=== PATIENT | female | born 1960 | race Caucasian/White ===

== ENCOUNTER → 2016-11-08 | Outpatient (CLI) | payer OTHER ==
[~2016-11-08] MED LIST: TRAZ100T29 PO
--- NOTE | 2016-11-08 16:42 | MAMMOGRAPHY REPORT ---
BILATERAL DIGITAL SCREENING MAMMOGRAM TOMOSYNTHESIS WITH CAD: 11/08/2016 CLINICAL HISTORY: Routine screening. Patient has no complaints. TECHNIQUE: Breast tomosynthesis in addition to standard 2D mammography was performed. Current study was also evaluated with a Computer Aided Detection (CAD) system. COMPARISON: Comparison is made to exams dated: 09/16/2015 mammogram, 04/22/2013 mammogram - [facility], 06/03/2009, and 04/19/2008. BREAST COMPOSITION: The tissue of both breasts is heterogeneously dense, which may obscure small ma sses. FINDINGS: There is an area of possible architectural distortion seen within the right superior post erior breast seen on the MLO tomosynthesis images, for which spot compression tomosynthesis views, r ight XCCL view, and possible breast ultrasound are recommended for further evaluation. The remainder of both breasts are stable compared to prior exams, without suspicious masses, calcifi cations, or areas of architectural distortion noted. IMPRESSION: ACR BI-RADS CATEGORY 0: INCOMPLETE EVALUATION: NEED ADDITIONAL IMAGING EVALUATION Possible right breast architectural distortion, for which additional imaging evaluation is recommend ed. The patient will be called to schedule an appointment. Approximately 10% of breast cancers are not detected with mammography. A negative mammographic repor t should not delay biopsy if a clinically suggestive mass is present. Renetta Sauceda M.D. ah/:11/08/2016 15:54:31 Lead Generation Representative: Rosangela GUILLERMO)(M), [facility] letter sent: Addl Imaging 0 BI-RADS Code: ACR BI-RADS Category 0: Incomplete Evaluation: Need Additional Imaging Evaluation
== END | disposition home or self-care (01) ==
LOC: C.MAMM 08:46
PROVIDERS: ATTEND Obstetrics & Gynecology
DX: Z12.31 Encounter for screening mammogram for malignant neoplasm of breast (principal)

== ENCOUNTER → 2016-11-12 | Outpatient (CLI) | payer OTHER ==
[2016-11-12 15:29] LABS: THYROID STIMULATING HORMONE 0.575 uIu/ml (0.300-4.500)
[2016-11-13 08:11] LABS: ESTIMATED AVERAGE GLUCOSE 111 mg/dl; HA1C FLAG Normal (Normal)
== END | disposition home or self-care (01) ==
LOC: C.LAB1850 13:34
PROVIDERS: ATTEND Internal Medicine
DX: E03.9 Hypothyroidism, unspecified (principal); R73.01 Impaired fasting glucose

== ENCOUNTER → 2016-11-19 | Outpatient (CLI) | payer OTHER ==
--- NOTE | 2016-11-19 15:13 | MAMMOGRAPHY REPORT ---
UNILATERAL RIGHT DIGITAL DIAGNOSTIC MAMMOGRAM TOMOSYNTHESIS AND TARGETED RIGHT ULTRASOUND: 11/19/2016 CLINICAL HISTORY: Architectural distortion in the far superior posterior right breast, only seen on the MLO view. During diagnostic consultation, the patient reports a history of previous right breast surgery in which yielded benign results. There is a small, 2 cm visible vertical scar in the 9:30 far later al right breast. TECHNIQUE: Breast tomosynthesis in addition to standard 2D mammography was performed. Spot cassi tanya right MLO tomosynthesis, right neck CC L tomosynthesis and repeat right MLO tomosynthesis image s with reconstructed C view were obtained. COMPARISON: Comparison is made to exams dated: 11/08/2016 mammogram, 09/16/2015 mammogram, 04/22/2013 mammogram - [facility], 04/19/2008, and 06/03/2009. BREAST COMPOSITION: The tissue of the right breast is heterogeneously dense, which may obscure smal l masses. FINDINGS: Initially the spot compression MLO and exaggerated lateral CC views of the right breast we re obtained. The architectural distortion persists on the spot compression MLO view in the far post erior, slightly superior breast. This is not clearly identified on the exaggerated lateral CC view. No other suspicious mass, architectural distortion or suspicious microcalcifications are seen. On visual inspection there is a vertical scar from an incision in the 9:30 far lateral right breast. Sonographic evaluation was performed throughout the superior right breast and no suspicious solid or cystic mass was seen. There is a vertically oriented hypoechoic area in the skin of the 9:30 kali ast, 6 cm from the nipple, denoting the area of prior surgery. A radiodense scar marker was placed over the incision and a repeat right MLO tomosynthesis view was performed. The scar marker aligns with the area of architectural distortion, confirming it is posts urgical in nature and benign. IMPRESSION: ACR BI-RADS CATEGORY 2: BENIGN, TARGETED ULTRASOUND ACR BI-RADS CATEGORY 2: BENIGN The architectural distortion in the superior posterior right breast correlates with postsurgical sca rring, from the patient's prior benign breast surgery. There is no mammographic or targeted sonogra phic evidence of malignancy. Return to annual screening mammography schedule is recommended. These results and recommendations were discussed with the patient at the time of the exam. Approximately 10% of breast cancers are not detected with mammography. A negative mammographic repor t should not delay biopsy if a clinically suggestive mass is present. Mai Mathews M.D. ay/:11/19/2016 14:30:58 Dry Lumber Grader: Celeste GUILLERMO)([place]), [facility] letter sent: Normal 1/2 BI-RADS Code: ACR BI-RADS Category 2: Benign Ultrasound BI-RADS: ACR BI-RADS Category 2: Benign
== END | disposition home or self-care (01) ==
LOC: C.MAMM 10:15
PROVIDERS: ATTEND Obstetrics & Gynecology
DX: R93.8 Abnormal findings on diagnostic imaging of other specified body structures (principal)

== ENCOUNTER → 2017-04-22 | Outpatient (CLI) | payer OTHER ==
[2017-04-22 11:10] LABS: HEMATOCRIT 38.2 % (37-47); MEAN CORPUSCULAR HEMOGLOBIN 32.7 pg (25-34); MEAN CORPUSCULAR HGB CONC 33.8 g/dl (32-36); MEAN PLATELET VOLUME 10.4 fL (7.4-10.4); PLATELET COUNT 219 K/uL (130-400); RED BLOOD COUNT 3.94 M/uL (4.2-5.4); WHITE BLOOD COUNT 3.98 K/uL (4.8-10.8)
[2017-04-22 11:35] LABS: ESTIMATED AVERAGE GLUCOSE 117 mg/dl; HA1C FLAG Normal (Normal)
[2017-04-22 11:56] LABS: CHOLESTEROL/HDL RATIO 1.8
== END | disposition home or self-care (01) ==
LOC: C.LABBC 08:36
PROVIDERS: ATTEND Physician Assistant Medical
DX: Z13.6 Encounter for screening for cardiovascular disorders (principal)

== ENCOUNTER → 2018-01-09 | Outpatient (CLI) | payer OTHER | END | disposition home or self-care (01) | LOC: C.PAPS 09:06 | PROVIDERS: ATTEND Obstetrics & Gynecology | DX: Z12.4 Encounter for screening for malignant neoplasm of cervix (principal) ==

== ENCOUNTER → 2018-02-07 | Outpatient (CLI) | payer OTHER ==
[2018-02-07 17:15] LABS: ALBUMIN 3.3 gm/dl (3.4-5.0); ALT/SGPT 25 U/L (12-78); AST/SGOT 24 U/L (15-37); BLOOD UREA NITROGEN 10 mg/dl (7-18); CALCIUM 8.6 mg/dl (8.5-10.1); CARBON DIOXIDE 30 mmol/L (21-32); CHOLESTEROL 168 mg/dl (0-200); CREATININE 0.75 mg/dl (0.60-1.20); GLUCOSE 90 mg/dl (70-99); POTASSIUM 4.2 mmol/L (3.5-5.1); SODIUM 138 mmol/L (136-145)
[2018-02-07 17:23] LABS: ALKALINE PHOSPHATASE 65 U/L (45-117); LDL CHOLESTEROL CALCULATED 53 mg/dl; TOTAL PROTEIN 7.3 gm/dl (6.4-8.2)
[2018-02-08 06:39] LABS: HEMOGLOBIN A1C 5.7 % (4.5-5.6)
== END | disposition home or self-care (01) ==
LOC: C.LAB1850 15:34
PROVIDERS: ATTEND Physician Assistant Medical
DX: E03.9 Hypothyroidism, unspecified (principal); R73.01 Impaired fasting glucose

== ENCOUNTER → 2018-02-07 | Outpatient (CLI) | payer OTHER | END | disposition home or self-care (01) | LOC: C.MAMM 15:06 | PROVIDERS: ATTEND Obstetrics & Gynecology | DX: Z12.31 Encounter for screening mammogram for malignant neoplasm of breast (principal) ==

== ENCOUNTER 2025-07-14 05:03 | Observation (INO) ==
[2025-07-14 05:37] LABS: Hematocrit (blood only) 33.0 % (37.0-47.0); Hemoglobin 11.8 g/dl (12.0-16.0); Immature Granulocytes # (auto) 0.03 K/uL (0.01-0.20); Immature Granulocytes % (auto) 0.3 %; Mean Corpuscular Hemoglobin 31.4 pg (25.0-34.0); Mean Corpuscular Volume 87.8 fL (80.0-100.0); Platelet Count 244 K/uL (130-400); RDW Standard Deviation 35.7 fL (36.4-46.3); Red Blood Count 3.76 M/uL (4.20-5.40); White Blood Count 8.60 K/ul (4.8-10.8)
[2025-07-14 06:03] LABS: Alanine Aminotransferase 14.0 U/L (7-52); Albumin Globulin Ratio 1.0 (0.9-2); Albumin Level 3.5 gm/dl (3.4-5.0); Alkaline Phosphatase 56.0 U/L (34-104); Anion Gap 7.0 (3-11); Bilirubin,Total 0.7 mg/dl (0.2-1.0); Blood Urea Nitrogen 7.0 mg/dl (6-23); Calcium 8.4 mg/dl (8.6-10.3); Carbon Dioxide 25.0 mmol/L (21-32); Chloride 86.0 mmol/L (98-107); Creatinine Clr Calc Pharmacy 100.0 ml/min; Globulin 3.5 gm/dl (2.5-4.0); Glucose 122.0 mg/dl (70-99(Fasting)); Lipase 11.0 U/L (11-82); Potassium 3.4 mmol/L (3.5-5.1); Sodium 118.0 mmol/L (136-145); Total Protein 7.0 gm/dl (6.0-8.3)
[2025-07-14] MEDS: FAMOTIDINE 20MG IV PUSH 20 MG/5 ML SYR IV STA (06:11)
[2025-07-14] MEDS: ACETAMINOPHEN 1,000 MG/100 ML VIAL IV STA (06:12)
[2025-07-14] MEDS: ONDANSETRON INJ 2 MG/ML 2 ML VIAL IV STA (06:12)
[2025-07-14] MEDS: SODIUM CHLORIDE 0.9% 500 ML IV ONE (06:15)
--- NOTE | 2025-07-14 06:24 | Emergency Department Note ---
Impression & Plan Hyponatremia with decreased serum osmolality, Constipation, Acute urinary retention, Status post hysterectomy ED Provider Note NAME: ROBERTO Colin MALENA AGE: 65 SEX: F : 1960 ARRIVES VIA: Walk-In INFORMANT: Patient ED PROVIDER(S): Jimbo Chase MD CHIEF COMPLAINT: Abdominal pain, constipation PLAN: Disposition: Admit MEDICAL DECISION MAKING: The patient is a pleasant 65-year-old woman with a past medical history of von Willebrand's disease, hypothyroidism, hyperlipidemia who presents to Emergency Department via walk-in accompanied by her , [place] concaver, for evaluation of abdominal pain that is been ongoing since her hysterectomy on Saturday. She reports that since her procedure patient has been unable to move her bowels. Patient reports she she has chronic constipation and uses laxatives regularly. She reports mild generalized CHATMAN. She denies fevers, cough, congestion, urinary symptoms. Of note, prior to the patient's hysterectomy the patient was treated with prophylactic dose of intranasal desmopressin. On evaluation the patient is no distress, afebrile blood pressure 150/80s and vital signs otherwise stable. She appears clinically dry. She has lower abdominal fullness but no overt distention. No discrete tenderness to palpation. WBC, within normal limits. There is neutrophilia but no left shift. H/H approximate to prior values. Platelets within normal limits. Chemistry without metabolic acidosis. Sodium is noted to be 118 with normal glucose. Osmolality is low at 249 with urine osmolality similar at 251. Urine sodium is mildly elevated at 16. Otherwise no evidence of urinary infection. LFTs are unremarkable. Lipase wnl. CT of the head was completed out of caution and was negative for acute abnormalities. CT of the abdomen pelvis demonstrates colonic fecal and gaseous distention suggestive of constipation given patient's presentation. Post- operative changes present. Incidental findings also noted including liver hypodensity. Of note, bladder did appear distended per my personal review and following CT postvoid bladder scan was performed and patient demonstrated urinary retention of 500+ cc of urine. Thus, Bledsoe catheter was placed. Suspect urinary retention may be related to the patient's recent surgery/anesthesia or contributing to or caused by patient's constipation. Patient did report subsequent relief following Bledsoe catheter placement. Suspect patient's hyponatremia is likely multifactorial including patient's prophylactic desmopressin prior to procedure though given duration of action and half-life unlikely to be exerting any significant effect at this time. Likely further provoked by poor solute intake following the procedure. Case was discussed with Dr. Bush, [facility] hospitalist, who will evaluate the patient for admission. Further management per admitting team. Triage Nursing notes reviewed and agree them. Prior/external medical records reviewed Vital Signs: reviewed Differential diagnosis: Functional constipation, impaction, obstruction, volvulus, metabolic abnormality, infection, neurologic, as well as other pathologies. ER treatment provided: See below. Diagnostics interpreted by me: Cardiac Monitoring: An order for continuous cardiac monitoring was placed and demonstrated NSR, 69 bpm, no ectopy. Laboratory studies: See below Imaging studies: See below Consultation(s): Case was discussed with Dr. Bush, [facility] hospitalist, who will evaluate the patient for admission. HPI: Per MDM. ROS: See above HPI for pertinent positives & negatives. A total of 10 systems reviewed and were otherwise negative. VITALS:See Below PHYSICAL EXAMINATION: GENERAL: Awake, alert, in no distress HENT: Normocephalic, atraumatic. Oropharynx with dry mucous membranes and otherwise unremarkable. EYES: Normal conjunctiva. Sclera non-icteric. EOMI. No nystamgus. PEARRL. NECK: Supple. No nuchal rigidity. FROM. No JVD. RESPIRATORY: Clear to auscultation. CARDIAC: Regular rate, normal rhythm. Extremities warm and well perfused. Pulses equal. ABDOMEN: Lower abdominal fullness but no overt distention. No discrete tenderness to palpation. MUSCULOSKELETAL: Chest examination reveals no tenderness. The back is symmetrical on inspection without obvious abnormality. There is no CVA tenderness to palpation. No joint edema. LOWER EXTREMITIES: Calves are equal size bilaterally and non-tender. No edema. No discoloration. NEURO: Normal sensorium. No sensory or motor deficits noted. SKIN: No rash or jaundice noted. Jimbo Chase MD Past Med/Surg History Problem List (Updated 07/15/25 @ 09:04 by Jimbo Chase MD) Status post hysterectomy (Acute) Acute urinary retention (Acute) Constipation (Acute) Hyponatremia with decreased serum osmolality (Acute) Hormone imbalance Encounter for health maintenance examination Von Willebrand disease, type I (Acute) Impaired fasting glucose (Acute) Hypothyroidism (Acute) Dyslipidemia (Acute) Depression (Acute) Hyperglobulinemia Encounter for health maintenance examination Medical History Basal cell carcinoma Abnormal mammogram Surgical History S/P rhinoplasty H/O breast biopsy open Family History Grandfather Lung cancer Father Myocardial infarction Mother Diverticulosis Lung cancer Grandmother (Paternal) Lung cancer Sister Lupus Denies family history of Ovarian cancer Prostate cancer Breast cancer Colorectal cancer Social History Smoking Status: Never smoker Second Hand Exposure: No; Do You Dip or Chew Tobacco: No; Hx Alcohol Use: No Hx Substance Use: No Preferred Language: Bulgarian Current Living Situation: Spouse Feels Safe at Home: Yes Diet: regular caffeine: Yes Dental Care, Regularly: Yes Physical Activity Frequency: 5-6 Times per Week Physical Activity Frequency Comment: HIIT Seatbelt Use: always Sunscreen Use: Yes Assistive Devices: Glasses and Hospital Bed Allergies Allergies Allergy/AdvReac Type Severity Reaction Status Date / Time Penicillins Allergy Intermediate Verified 03/19/25 08:38 Sulfa (Sulfonamide Allergy Intermediate Verified 03/19/25 08:38 Antibiotics) sulfamethoxazole Allergy Intermediate Verified 03/19/25 08:38 ANCHOVY Allergy Severe Redness of Uncoded 03/19/25 08:38 Skin Home Meds Home Medications Medication Instructions Recorded Confirmed docusate sodium 100 mg capsule 100 mg PO UD PRN Constipation 05/27/19 07/14/25 cholecalciferol (vitamin D3) 50 4,000 unit PO DAILY 05/01/24 07/14/25 mcg (2,000 unit) capsule levothyroxine 88 mcg tablet 88 mcg PO QAM 07/14/25 07/14/25 ondansetron 4 mg disintegrating 4 mg PO Q6H PRN Nausea 07/14/25 07/14/25 tablet Previous Rx's Medication Instructions Recorded bupropion HCl 150 mg tablet,12 hr 150 mg PO DAILY #90 ea 04/05/25 sustained-release conj estrogen-medroxyprogesterone 1 tab PO QAM #90 tabs 04/05/25 0.625 mg-2.5 mg tablet (Prempro) Results & Data (ED) Vital Signs Vital Signs - 24 hr 07/14/25 09:00 07/14/25 09:22 07/14/25 09:33 Pulse Rate 64 60 69 Pulse Rate [Right Finger] Pulse Rate from SpO2 Sensor 64 68 Pulse Rhythm [Right Finger] Pulse Strength [Right Finger] Respiratory Rate 11 L 17 Respiratory Effort / Characteristics Respiratory Depth Respiratory Pattern Blood Pressure 143/89 H 153/87 H Blood Pressure [Right Arm] Blood Pressure Mean 107 109 Blood Pressure Mean [Right Arm] Pulse Oximetry 96 96 Oxygen Delivery Method 07/14/25 10:00 07/14/25 10:07 Pulse Rate 68 Pulse Rate [Right Finger] 66 Pulse Rate from SpO2 Sensor 68 Pulse Rhythm [Right Finger] Regular Pulse Strength [Right Finger] Normal Respiratory Rate 17 16 Respiratory Effort / Characteristics Non-Labored Respiratory Depth Normal Respiratory Pattern Regular Blood Pressure 148/84 H Blood Pressure [Right Arm] 147/86 H Blood Pressure Mean 115 Blood Pressure Mean [Right Arm] 106 Pulse Oximetry 96 96 Oxygen Delivery Method Room Air Laboratory Data Attestation: I reviewed the patient's lab results. 07/14/25 05:22 07/15/25 07:00 Lab Results 07/14/25 07/14/25 07/14/25 Range/Units 05:18 05:22 07:00 WBC 8.60 (4.8-10.8) K/ul RBC 3.76 L (4.20-5.40) M/uL Hgb 11.8 L (12.0-16.0) g/dl Hct 33.0 L (37.0-47.0) % MCV 87.8 (80.0-100.0) fL MCH 31.4 (25.0-34.0) pg MCHC 35.8 (32.0-36.0) g/dL RDW Std Deviation 35.7 L (36.4-46.3) fL RDW Coeff of Kayce 11.1 L (11.5-14.5) % Plt Count 244 (130-400) K/uL MPV 9.6 (9.4-12.4) fL Immature Gran % (Auto) 0.3 % Neut % (Auto) 79.2 % Lymph % (Auto) 14.0 % [place] % (Auto) 5.9 % Eos % (Auto) 0.1 % Baso % (Auto) 0.5 % Neut # (Auto) 6.81 H (1.40-6.50) K/uL Lymph # (Auto) 1.20 (1.20-3.40) K/uL [place] # (Auto) 0.51 (0.11-0.59) K/uL Eos # (Auto) 0.01 (0.00-0.50) K/uL Baso # (Auto) 0.04 (0.00-0.20) K/uL Immature Gran # (Auto) 0.03 (0.01-0.20) K/uL Sodium 118 L* (136-145) mmol/L Potassium 3.4 L (3.5-5.1) mmol/L Chloride 86 L (98-107) mmol/L Carbon Dioxide 25 (21-32) mmol/L Anion Gap 7 (3-11) BUN 7 (6-23) mg/dl Creatinine 0.56 L (0.6-1.2) mg/dl Est Cr Clr Drug Dosing 100.0 ml/min eGFR 102.49 BUN/Creatinine Ratio 12.5 (10-20) Glucose 122 H (70-99(Fasting)) mg/dl Osmolality 249 L (280-300) mOsm/kg Calcium 8.4 L (8.6-10.3) mg/dl Total Bilirubin 0.7 (0.2-1.0) mg/dl AST 22 (13-39) U/L ALT 14 (7-52) U/L Alkaline Phosphatase 56 (34-104) U/L Total Protein 7.0 (6.0-8.3) gm/dl Albumin 3.5 (3.4-5.0) gm/dl Globulin 3.5 (2.5-4.0) gm/dl Albumin/Globulin Ratio 1.0 (0.9-2) Lipase 11 (11-82) U/L Urine Color Yellow Urine Appearance Clear (Clear) Urine pH 7.5 (4.5-7.5) Ur Specific [place] 1.017 (1.000-1.030) Urine Protein Negative (Negative) Urine Glucose (UA) Negative (Negative) Urine Ketones Negative (Negative) Urine Blood 2+ H (Negative) Urine Nitrite Negative (Negative) Urine Bilirubin Negative (Negative) Urine Urobilinogen Negative (Negative) Ur Leukocyte Esterase 1+ H (Negative) Urine WBC (Auto) 0-5 (0-5) /hpf Urine RBC (Auto) >20 H (0-2) /hpf U Hyaline Cast (Auto) 0-2 (0-2) /lpf U Epithel Cells (Auto) 0-2 (0-2) /hpf Urine Bacteria (Auto) None Seen (None Seen) Urine Osmolality 251 L (500-800) mOsm/kg Ur Random Sodium 60 mmol/L Urine Comment 07/14/25 Range/Units 07:45 WBC (4.8-10.8) K/ul RBC (4.20-5.40) M/uL Hgb (12.0-16.0) g/dl Hct (37.0-47.0) % MCV (80.0-100.0) fL MCH (25.0-34.0) pg MCHC (32.0-36.0) g/dL RDW Std Deviation (36.4-46.3) fL RDW Coeff of Kayce (11.5-14.5) % Plt Count (130-400) K/uL MPV (9.4-12.4) fL Immature Gran % (Auto) % Neut % (Auto) % Lymph % (Auto) % [place] % (Auto) % Eos % (Auto) % Baso % (Auto) % Neut # (Auto) (1.40-6.50) K/uL Lymph # (Auto) (1.20-3.40) K/uL [place] # (Auto) (0.11-0.59) K/uL Eos # (Auto) (0.00-0.50) K/uL Baso # (Auto) (0.00-0.20) K/uL Immature Gran # (Auto) (0.01-0.20) K/uL Sodium 120 L (136-145) mmol/L Potassium 3.7 (3.5-5.1) mmol/L Chloride 88 L (98-107) mmol/L Carbon Dioxide 27 (21-32) mmol/L Anion Gap 5 (3-11) BUN 7 (6-23) mg/dl Creatinine 0.51 L (0.6-1.2) mg/dl Est Cr Clr Drug Dosing 109.8 ml/min eGFR 104.82 BUN/Creatinine Ratio 13.7 (10-20) Glucose 113 H (70-99(Fasting)) mg/dl Osmolality (280-300) mOsm/kg Calcium 8.2 L (8.6-10.3) mg/dl Total Bilirubin (0.2-1.0) mg/dl AST (13-39) U/L ALT (7-52) U/L Alkaline Phosphatase (34-104) U/L Total Protein (6.0-8.3) gm/dl Albumin (3.4-5.0) gm/dl Globulin (2.5-4.0) gm/dl Albumin/Globulin Ratio (0.9-2) Lipase (11-82) U/L Urine Color Urine Appearance (Clear) Urine pH (4.5-7.5) Ur Specific [place] (1.000-1.030) Urine Protein (Negative) Urine Glucose (UA) (Negative) Urine Ketones (Negative) Urine Blood (Negative) Urine Nitrite (Negative) Urine Bilirubin (Negative) Urine Urobilinogen (Negative) Ur Leukocyte Esterase (Negative) Urine WBC (Auto) (0-5) /hpf Urine RBC (Auto) (0-2) /hpf U Hyaline Cast (Auto) (0-2) /lpf U Epithel Cells (Auto) (0-2) /hpf Urine Bacteria (Auto) (None Seen) Urine Osmolality (500-800) mOsm/kg Ur Random Sodium mmol/L Urine Comment Administered Medications Bupropion HCl (Bupropion Sr 150 Mg Tabcr) 150 mg PO DAILY [facility] Stop: 08/13/25 12:59 Last Admin: 07/15/25 07:35 Dose: 150 mg Documented By: MARIA INES Admin: 07/14/25 14:18 Dose: 150 mg Documented By: MATY Docusate Sodium (Docusate Sodium 100 Mg Cap) 100 mg PO BID PRN PRN Reason: Constipation Stop: 08/13/25 12:46 Last Admin: 07/15/25 07:34 Dose: 100 mg Documented By: MARIA INES Enoxaparin Sodium (Enoxaparin Inj 40 Mg/0.4 Ml Syr) 40 mg SQ DAILY [facility] Stop: 08/13/25 12:59 Last Admin: 07/15/25 07:22 Dose: Not Given Documented By: MARIA INES Admin: 07/14/25 14:18 Dose: Not Given Documented By: ADB Acetaminophen (Ofirmev) 1,000 mg in 100 mls @ 400 mls/hr IV Q8H PRN PRN Reason: Pain Stop: 07/17/25 14:06 Last Infusion: 07/15/25 08:01 Dose: Infused Documented By: MARIA INES Admin: 07/15/25 07:35 Dose: 400 mls/hr Documented By: MARIA INES Infusion: 07/14/25 23:00 Dose: Infused Documented By: Admin: 07/14/25 22:36 Dose: 400 mls/hr Documented By: Infusion: 07/14/25 14:35 Dose: Infused Documented By: Admin: 07/14/25 14:19 Dose: 400 mls/hr Documented By: MATY Levothyroxine Sodium (Levothyroxine Sodium 88 Mcg Tablet) 88 mcg PO DAILYBB [facility] Stop: 08/13/25 12:59 Last Admin: 07/15/25 06:11 Dose: 88 mcg Documented By: Admin: 07/14/25 14:17 Dose: Not Given Documented By: MATY Polyethylene Glycol (Polyethylene (Miralax) 17 Gm Pack) 17 gm PO BID PRN PRN Reason: Constipation Stop: 08/13/25 10:31 Last Admin: 07/15/25 07:34 Dose: 17 gm Documented By: MARIA INES Vitamin D (Cholecalciferol 25 Mcg (1000 Units) Tab) 100 mcg PO DAILY [facility] Stop: 08/14/25 08:59 Last Admin: 07/15/25 07:35 Dose: 100 mcg Documented By: MARIA INES Discontinued Medications Acetaminophen (Ofirmev) 1,000 mg in 100 mls @ 400 mls/hr IV NOW STA Stop: 07/14/25 06:19 Last Infusion: 07/14/25 07:11 Dose: Infused Documented By: Admin: 07/14/25 06:12 Dose: 400 mls/hr Documented By: BARRY Sodium Chloride (Nss) 500 mls @ 999 mls/hr IV .Q31M ONE Stop: 07/14/25 06:36 Last Infusion: 07/14/25 07:11 Dose: Infused Documented By: Admin: 07/14/25 06:15 Dose: 999 mls/hr Documented By: BARRY Famotidine (Pepcid 20mg Iv Push) 20 mg in 5 mls @ 2.5 mls/min IV NOW STA Stop: 07/14/25 06:08 Last Admin: 07/14/25 06:11 Dose: 2.5 mls/min Documented By: BARRY Sodium Chloride (Nss) 1,000 mls @ 999 mls/hr IV .Q1H1M [facility] Stop: 07/14/25 11:54 Last Infusion: 07/14/25 18:14 Dose: Infused Documented By: Admin: 07/14/25 12:48 Dose: 999 mls/hr Documented By: MATY Sodium Chloride (Nss) 1,000 mls @ 40 mls/hr IV .Q24H [facility] Stop: 07/16/25 00:31 Last Infusion: 07/14/25 19:24 Dose: Infused Documented By: Admin: 07/14/25 18:16 Dose: 125 mls/hr Documented By: MATY Ioversol (Optiray 320 100ml) 94 ml IV ONCE ONE Stop: 07/14/25 06:38 Last Admin: 07/14/25 06:38 Dose: 94 ml Documented By: LACY Ondansetron HCl (Ondansetron Inj 2 Mg/Ml 2 Ml Vial) 4 mg IV NOW STA Stop: 07/14/25 06:08 Last Admin: 07/14/25 06:12 Dose: 4 mg Documented By: BARRY Ondansetron HCl (Ondansetron Inj 2 Mg/Ml 2 Ml Vial) Confirm Administered Dose 4 mg .ROUTE .STK-MED ONE Stop: 07/14/25 09:29 Last Admin: 07/14/25 09:29 Dose: 4 mg Documented By: KERRY Sodium Biphosphate/Sodium Phosphate (Sod Phosphate/Sod Biphosphate Enema 132 Ml Btl) 132 ml [place] NOW STA Stop: 07/14/25 10:48 Last Admin: 07/14/25 11:21 Dose: 132 ml Documented By: VANDANA Imaging Data Radiologist's Impression: Abdomen/Pelvis CT 07/14/25 06:06 EXAM: CT abd pelvis IV con only CLINICAL HISTORY: abd pain, s/p hysterectomy TECHNIQUE: Contiguous axial images were obtained from the level of the diaphragm to the pubic symphysis with intravenous contrast. Coronal and sagittal reconstructions were likewise performed and indicated to increase the sensitivity for detecting clinically relevant pathology. If IV contrast material had not been administered, the likelihood of detecting abnormalities relevant to the patient's condition would have been substantially decreased. The CT scan was performed according to ALARA (as low as reasonably achievable). COMPARISON: None. FINDINGS: The visualized lung bases are clear. The liver is normal in size and attenuation. Left liver lobe hypodensity surrounding falciform ligament. Few 1-2 mm hypodense lesions in right liver lobe- too small to characterize. Minimal intrahepatic biliary ductal dilatation in left lobe of liver. Hepatic vasculature is patent. Common bile duct measures 6 mm in caliber. The gallbladder is present. The spleen, pancreas, and adrenal glands are unremarkable. The kidneys are normal in size and attenuation. There is no hydronephrosis or perinephric fat stranding. No renal calculi or renal masses are identified. The ureters are normal in caliber, and no ureteral calculi are seen. The bladder is normal in contour. Post hysterectomy status. The cervical stump appears moderately bulky and shows heterogeneous enhancement with a few internal air foci. No evidence of bowel obstruction is identified. Appendix could not be delineated. Abdominal and pelvic vasculature is patent. No adenopathy or fluid collections are seen. No aggressive appearing osseous lesions are identified. Colonic fecal and gaseous distension. IMPRESSION: Left liver lobe hypodensity surrounding falciform ligament. Advised follow up with triple phase CT/ MRI if clinically indicated. Few 1-2 mm hypodense lesions in right liver lobe- too small to characterize. Minimal intrahepatic biliary ductal dilatation in left lobe of liver. No obvious hyperdense calculus seen in common bile duct. Colonic fecal and gaseous distension. No signs of bowel obstruction. Post hysterectomy status. The cervical stump appears moderately bulky and shows heterogeneous enhancement with a few internal air foci. Could be suggestive of post-operative changes. Advised clinical and ultrasound correlation. Electronically signed by Thad Farrell 07-14-2025 07:[address] 07/14/25 06:23 EXAM: CT head/brain wo con CLINICAL HISTORY: amanda CHATMAN TECHNIQUE: Multiple axial images are obtained from the skull base to the vertex without contrast. CT scan was performed according to ALARA (as low as reasonably achievable). COMPARISON: None. FINDINGS: There is cerebral atrophy. No evidence of space occupying lesion, hemorrhage, edema, mass effect, midline shift, extra axial collection, or hydrocephalus is noted. Basal cisterns are symmetric and normal in size and configuration. There are scattered periventricular hypodensities as can be seen with chronic microvascular ischemic changes. The gaitan-white matter differentiation is preserved. Visualized paranasal sinuses and mastoid air cells are well aerated. Orbital contents are within normal limits. Bony structures are intact. IMPRESSION: 1. No evidence of acute intracranial abnormality is demonstrated. 2. Chronic microvascular ischemic changes. 3. Cerebral atrophy. Electronically signed by Thad Farrell 07-14-2025 07:11 AM Discharge Plan Visit Data Chief Complaint: Abdominal Pain Stated Complaint: ABD PAIN POST OP ED Provider: Jimbo Chase Discharge Problem: Hyponatremia with decreased serum osmolality, Constipation, Acute urinary retention, Status post hysterectomy Patient Disposition: Admitted As Inpatient Condition: Serious Discharge Instructions Interventions: ED Discharge Assessment Last Done: 07/14/25 12:08 Discharge Problem: Constipation Qualifiers: Constipation type: unspecified constipation type Qualified Code(s): K59.00 - Constipation, unspecified
[2025-07-14] MEDS: OPTIRAY 320 100ml IV ONE (06:38)
--- NOTE | 2025-07-14 07:11 | CT Scan Report ---
EXAM: CT head/brain wo con CLINICAL HISTORY: amanda CHATMAN TECHNIQUE: Multiple axial images are obtained from the skull base to the vertex without contrast. CT scan was performed according to ALARA (as low as reasonably achievable). COMPARISON: None. FINDINGS: There is cerebral atrophy. No evidence of space occupying lesion, hemorrhage, edema, mass effect, midline shift, extra axial collection, or hydrocephalus is noted. Basal cisterns are symmetric and normal in size and configuration. There are scattered periventricular hypodensities as can be seen with chronic microvascular ischemic changes. The gaitan-white matter differentiation is preserved. Visualized paranasal sinuses and mastoid air cells are well aerated. Orbital contents are within normal limits. Bony structures are intact. IMPRESSION: 1. No evidence of acute intracranial abnormality is demonstrated. 2. Chronic microvascular ischemic changes. 3. Cerebral atrophy. Electronically signed by Thad Farrell 07-14-2025 07:11 AM
[2025-07-14 07:33] LABS: Appearance Urine Clear (Clear); Bacteria Urine Automated None Seen (None Seen); Cast Urine Automated 0-2 /lpf (0-2); Epithelial Cell Urine Auto 0-2 /hpf (0-2); Glucose Urine UA Negative (Negative); RBC Urine Automated >20 /hpf (0-2); WBC Urine Automated 0-5 /hpf (0-5)
--- NOTE | 2025-07-14 07:34 | CT Scan Report ---
EXAM: CT abd pelvis IV con only CLINICAL HISTORY: abd pain, s/p hysterectomy TECHNIQUE: Contiguous axial images were obtained from the level of the diaphragm to the pubic symphysis with intravenous contrast. Coronal and sagittal reconstructions were likewise performed and indicated to increase the sensitivity for detecting clinically relevant pathology. If IV contrast material had not been administered, the likelihood of detecting abnormalities relevant to the patient's condition would have been substantially decreased. The CT scan was performed according to ALARA (as low as reasonably achievable). COMPARISON: None. FINDINGS: The visualized lung bases are clear. The liver is normal in size and attenuation. Left liver lobe hypodensity surrounding falciform ligament. Few 1-2 mm hypodense lesions in right liver lobe- too small to characterize. Minimal intrahepatic biliary ductal dilatation in left lobe of liver. Hepatic vasculature is patent. Common bile duct measures 6 mm in caliber. The gallbladder is present. The spleen, pancreas, and adrenal glands are unremarkable. The kidneys are normal in size and attenuation. There is no hydronephrosis or perinephric fat stranding. No renal calculi or renal masses are identified. The ureters are normal in caliber, and no ureteral calculi are seen. The bladder is normal in contour. Post hysterectomy status. The cervical stump appears moderately bulky and shows heterogeneous enhancement with a few internal air foci. No evidence of bowel obstruction is identified. Appendix could not be delineated. Abdominal and pelvic vasculature is patent. No adenopathy or fluid collections are seen. No aggressive appearing osseous lesions are identified. Colonic fecal and gaseous distension. IMPRESSION: Left liver lobe hypodensity surrounding falciform ligament. Advised follow up with triple phase CT/ MRI if clinically indicated. Few 1-2 mm hypodense lesions in right liver lobe- too small to characterize. Minimal intrahepatic biliary ductal dilatation in left lobe of liver. No obvious hyperdense calculus seen in common bile duct. Colonic fecal and gaseous distension. No signs of bowel obstruction. Post hysterectomy status. The cervical stump appears moderately bulky and shows heterogeneous enhancement with a few internal air foci. Could be suggestive of post-operative changes. Advised clinical and ultrasound correlation. Electronically signed by Thad Farrell 07-14-2025 07:34 AM
[2025-07-14 08:28] LABS: Anion Gap 5.0 (3-11); Blood Urea Nitrogen 7.0 mg/dl (6-23); Calcium 8.2 mg/dl (8.6-10.3); Carbon Dioxide 27.0 mmol/L (21-32); Chloride 88.0 mmol/L (98-107); Creatinine Clr Calc Pharmacy 109.8 ml/min; Glucose 113.0 mg/dl (70-99(Fasting)); Potassium 3.7 mmol/L (3.5-5.1); Sodium 120.0 mmol/L (136-145)
--- NOTE | 2025-07-14 09:18 | History & Physical Report ---
Date of Service July 14, 2025 Assessment & Plan (1) Von Willebrand disease, type I: (2) Hypothyroidism: (3) Hyponatremia with decreased serum osmolality: Plan #Hyponatremia/Nausea and Vomiting/Low serum osmolality - Na, 118 upon admission; took one 150 mcg dose of desmopressin on Mon prior to her hysterectomy - Serum osmolality, 249; Urine osmolality, 251; Ur (Na), 60 - CT-Head: 1. No evidence of acute intracranial abnormality is demonstrated. 2. Chronic microvascular ischemic changes. 3. Cerebral atrophy. 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 Advised follow up with triple phase CT/ MRI if clinically indicated. 2) Minimal intrahepatic biliary ductal dilatation in left lobe of liver. No obvious hyperdense calculus seen in common bile duct. 3) Colonic fecal and gaseous distension. No signs of bowel obstruction. - ordered Fleet enema; Miralax, 17 g, PO, BID, PRN Code status: Full code Disposition: Med-Surg VTE Prophylaxis: Lovenox, 40 mg, subQ, daily FENGI: NSS, 125 mL/hr, 2 L total; Full liquids History of Present Illness Primary Care Provider: Mor Hayes MD Patient is a 65 yo F w/ a PMHx of von Willebrand disease (type I), hypothyroidism, dyslipidemia, depression, Hx of BCC, s/p rhinoplasty, Hx of breast Bx, presenting today 2 days s/p hysterectomy. Patient took 1 dose of desmopressin, intranasal, 150 mcg prior to her surgery as a precaution against severe bleeding due to her pre-existing von Willebrand's type 1 disease. This was her first time taking this medication. Patient stated that she started to have nausea and vomiting about a half an hour after getting out of surgery and has had little oral intake since. Patient endorses N/V/AP but denies any CHATMAN's, muscle aches, increased lethargy/confusion and is AAO x 4. Patient also notes that she has had constipation on and off for twenty years and has been attempting to manage it with twice weekly Senna laxative doses. Today she feels constipated and hasn't had a BM since her surgery. She feels that most of the abdominal pain is coming from her retained stool as opposed from the N/V, which is more associated with a cramping pain. Allergies Allergy/AdvReac Type Severity Reaction Status Date / Time Penicillins Allergy Intermediate Verified 03/19/25 08:38 Sulfa (Sulfonamide Allergy Intermediate Verified 03/19/25 08:38 Antibiotics) sulfamethoxazole Allergy Intermediate Verified 03/19/25 08:38 ANCHOVY Allergy Severe Redness of Uncoded 03/19/25 08:38 Skin Home Medications Medication Instructions Recorded Confirmed Type cholecalciferol (vitamin D3) 50 4,000 unit PO DAILY 05/01/24 07/19/25 History mcg (2,000 unit) capsule bupropion HCl 150 mg tablet,12 hr 150 mg PO DAILY #90 ea 04/05/25 07/19/25 Rx sustained-release conj estrogen-medroxyprogesterone 1 tab PO QAM #90 tabs 04/05/25 07/19/25 Rx 0.625 mg-2.5 mg tablet (Prempro) levothyroxine 88 mcg tablet 88 mcg PO QAM 07/14/25 07/19/25 History ondansetron 4 mg disintegrating 4 mg PO Q6H PRN Nausea 07/14/25 07/19/25 History tablet acetaminophen 500 mg tablet 1,000 mg (2 x 500 mg) PO Q6H PRN 07/19/25 07/19/25 Rx (Tylenol Extra Strength) fever #90 tabs biotin 2,500 mcg capsule 2,500 mcg PO DAILY 07/19/25 07/19/25 History clindamycin phosphate 1 % topical 1 applic topical BID 07/19/25 07/19/25 History gel, once daily conjugated estrogens 0.625 mg/gram 0.5 mg vaginal DAILY 07/19/25 07/19/25 History vaginal cream (Premarin) desmopressin 10 mcg/spray (0.1 mL) See Rx Instructions .Route 07/19/25 07/19/25 History nasal spray .COMPLEX PRN docusate sodium 100 mg capsule 200 mg PO BID PRN Constipation 07/19/25 07/19/25 History hydrochlorothiazide 25 mg tablet 12.5 mg (1/2 x 25 mg) PO DAILY PRN 07/19/25 07/19/25 Rx edema #30 tabs polyethylene glycol See Rx Instructions miscellaneous 07/19/25 07/19/25 History .COMPLEX testosterone 50 mg/5 gram (1 %) 1 tube transdermal DAILY 07/19/25 07/19/25 History transdermal gel valacyclovir 1 gram tablet 1,000 mg PO DAILY PRN 07/19/25 07/19/25 History (Valtrex) Past Med/Surg History Problem List (Updated 07/16/25 @ 09:43 by Khang Bush) Hyponatremia Status post hysterectomy (Acute) Acute urinary retention (Acute) Constipation (Acute) Hyponatremia with decreased serum osmolality (Acute) Hormone imbalance Encounter for health maintenance examination Von Willebrand disease, type I (Acute) Impaired fasting glucose (Acute) Hypothyroidism (Acute) Dyslipidemia (Acute) Depression (Acute) Hyperglobulinemia Encounter for health maintenance examination Medical History Basal cell carcinoma Abnormal mammogram Surgical History S/P rhinoplasty H/O breast biopsy open Family History Grandfather Lung cancer Father Myocardial infarction Mother Diverticulosis Lung cancer Grandmother (Paternal) Lung cancer Sister Lupus Denies family history of Ovarian cancer Prostate cancer Breast cancer Colorectal cancer Social History Smoking Status: Never smoker Second Hand Exposure: No; Do You Dip or Chew Tobacco: No; Hx Alcohol Use: No Hx Substance Use: No Preferred Language: Bahraini Communication Ability: Effective Current Living Situation: Spouse Feels Safe at Home: Yes Diet: regular caffeine: Yes Dental Care, Regularly: Yes Physical Activity Frequency: 5-6 Times per Week Physical Activity Frequency Comment: HIIT Seatbelt Use: always Sunscreen Use: Yes Assistive Devices: None Review of Systems Respiratory: no cough, no dyspnea and no wheezing Cardiovascular: no chest pain and no palpitations Gastrointestinal: + abdominal pain, + nausea, + vomiting, + cramping and + constant urge to pass stools; no hematemesis pt states that she's been "abusing laxatives" or relying on them to have normal BM's for 20 yrs Musculoskeletal: no muscle weakness Physical Exam Constitutional: WD/WN, vitals as above Respiratory: normal respiratory effort, lungs clear to auscultation Cardiovascular: RRR, no murmur, no edema Extremities: no calf tenderness Gastrointestinal (Abdomen): Inspection/Auscultation: abdomen normal to inspection and normal bowel sounds; abdomen not distended Percussion/Palpation: + abdomen tender (diffuse tenderness) and abdomen soft; no guarding Psychiatric: A+Ox3, euthymic affect Results & Data Results & Data Vital Signs (Past 12 Hours) Vital Signs Temp Pulse Pulse Resp BP BP Pulse Ox 07/14/25 08:30 64 15 151/85 H 95 07/14/25 08:00 63 16 147/86 H 95 07/14/25 07:30 61 17 140/84 94 07/14/25 07:00 60 14 163/93 H 95 07/14/25 06:02 68 16 162/91 H 96 07/14/25 05:25 68 07/14/25 05:23 95 H 16 97 07/14/25 05:14 66 16 160/90 H 96 07/14/25 05:07 36.8 C 69 17 152/80 H 97 O2 Del Method 07/14/25 08:30 07/14/25 08:00 07/14/25 07:30 07/14/25 07:00 07/14/25 06:02 Room Air 07/14/25 05:25 07/14/25 05:23 Room Air 07/14/25 05:14 Room Air 07/14/25 05:07 Room Air Diagnostic Findings Abdomen/Pelvis CT 07/14/25 06:06 EXAM: CT abd pelvis IV con only CLINICAL HISTORY: abd pain, s/p hysterectomy TECHNIQUE: Contiguous axial images were obtained from the level of the diaphragm to the pubic symphysis with intravenous contrast. Coronal and sagittal reconstructions were likewise performed and indicated to increase the sensitivity for detecting clinically relevant pathology. If IV contrast material had not been administered, the likelihood of detecting abnormalities relevant to the patient's condition would have been substantially decreased. The CT scan was performed according to ALARA (as low as reasonably achievable). COMPARISON: None. FINDINGS: The visualized lung bases are clear. The liver is normal in size and attenuation. Left liver lobe hypodensity surrounding falciform ligament. Few 1-2 mm hypodense lesions in right liver lobe- too small to characterize. Minimal intrahepatic biliary ductal dilatation in left lobe of liver. Hepatic vasculature is patent. Common bile duct measures 6 mm in caliber. The gallbladder is present. The spleen, pancreas, and adrenal glands are unremarkable. The kidneys are normal in size and attenuation. There is no hydronephrosis or perinephric fat stranding. No renal calculi or renal masses are identified. The ureters are normal in caliber, and no ureteral calculi are seen. The bladder is normal in contour. Post hysterectomy status. The cervical stump appears moderately bulky and shows heterogeneous enhancement with a few internal air foci. No evidence of bowel obstruction is identified. Appendix could not be delineated. Abdominal and pelvic vasculature is patent. No adenopathy or fluid collections are seen. No aggressive appearing osseous lesions are identified. Colonic fecal and gaseous distension. IMPRESSION: Left liver lobe hypodensity surrounding falciform ligament. Advised follow up with triple phase CT/ MRI if clinically indicated. Few 1-2 mm hypodense lesions in right liver lobe- too small to characterize. Minimal intrahepatic biliary ductal dilatation in left lobe of liver. No obvious hyperdense calculus seen in common bile duct. Colonic fecal and gaseous distension. No signs of bowel obstruction. Post hysterectomy status. The cervical stump appears moderately bulky and shows heterogeneous enhancement with a few internal air foci. Could be suggestive of post-operative changes. Advised clinical and ultrasound correlation. Electronically signed by Thad Farrell 07-14-2025 07:[address] 07/14/25 06:23 EXAM: CT head/brain wo con CLINICAL HISTORY: amanda CHATMAN TECHNIQUE: Multiple axial images are obtained from the skull base to the vertex without contrast. CT scan was performed according to ALARA (as low as reasonably achievable). COMPARISON: None. FINDINGS: There is cerebral atrophy. No evidence of space occupying lesion, hemorrhage, edema, mass effect, midline shift, extra axial collection, or hydrocephalus is noted. Basal cisterns are symmetric and normal in size and configuration. There are scattered periventricular hypodensities as can be seen with chronic microvascular ischemic changes. The gaitan-white matter differentiation is preserved. Visualized paranasal sinuses and mastoid air cells are well aerated. Orbital contents are within normal limits. Bony structures are intact. IMPRESSION: 1. No evidence of acute intracranial abnormality is demonstrated. 2. Chronic microvascular ischemic changes. 3. Cerebral atrophy. Electronically signed by Thad Farrell 07-14-2025 07:11 AM Supervising Physician Co-Signing Physician Notes I personally examined the patient and verified all araya points of history and exam, discussed case, and agree with decision making with Dr Parrish PGY 3. hyponatreemia/ nausea vomiting/ low serum osmolality Likely secondary to desmopressin and may perhaps urinary retetion Ordered perez and IVF 200 ml/hr WIll closely monitor sodium. Hyponatremia likely acute.
[2025-07-14] MEDS: ONDANSETRON INJ 2 MG/ML 2 ML VIAL ONE (09:29)
[2025-07-14] MEDS ORDERED: ONDANSETRON INJ 2 MG/ML 2 ML VIAL IV PRN (10:32)
[2025-07-14] MEDS ORDERED: MELATONIN 3 MG TAB PO PRN (10:32)
[2025-07-14] MEDS ORDERED: ACETAMINOPHEN 500 MG TAB PO PRN (10:32)
[2025-07-14] MEDS: SOD PHOSPHATE/SOD BIPHOSPHATE ENEMA 132 ML BTL PR STA (11:21)
[2025-07-14] MEDS: SODIUM CHLORIDE 0.9% 1,000 ML IV SCH ×2 (12:48→18:16)
[2025-07-14] MEDS: LEVOTHYROXINE SODIUM 88 MCG TABLET PO SCH (14:17)
[2025-07-14] MEDS: ENOXAPARIN INJ 40 MG/0.4 ML SYR SQ SCH (14:18)
[2025-07-14] MEDS: ACETAMINOPHEN 1,000 MG/100 ML VIAL IV PRN (14:19)
[2025-07-14 18:20] LABS: Anion Gap 4.0 (3-11); Blood Urea Nitrogen 7.0 mg/dl (6-23); Calcium 7.9 mg/dl (8.6-10.3); Carbon Dioxide 27.0 mmol/L (21-32); Chloride 95.0 mmol/L (98-107); Creatinine Clr Calc Pharmacy 91.8 ml/min; Glucose 146.0 mg/dl (70-99(Fasting)); Potassium 3.2 mmol/L (3.5-5.1); Sodium 126.0 mmol/L (136-145)
[2025-07-14 21:29] LABS: Anion Gap 4.0 (3-11); Blood Urea Nitrogen 8.0 mg/dl (6-23); Calcium 8.1 mg/dl (8.6-10.3); Carbon Dioxide 26.0 mmol/L (21-32); Chloride 98.0 mmol/L (98-107); Creatinine Clr Calc Pharmacy 93.3 ml/min; Glucose 103.0 mg/dl (70-99(Fasting)); Potassium 3.3 mmol/L (3.5-5.1); Sodium 128.0 mmol/L (136-145)
[2025-07-15] MEDS: POLYETHYLENE (MIRALAX) 17 GM PACK PO PRN (07:34)
[2025-07-15] MEDS: DOCUSATE SODIUM 100 MG CAP PO PRN (07:34)
[2025-07-15] MEDS: CHOLECALCIFEROL 25 MCG (1000 UNITS) TAB PO SCH (07:35)
[2025-07-15 07:52] VITALS: RESP 16
[2025-07-15 08:03] LABS: Anion Gap 5.0 (3-11); Blood Urea Nitrogen 7.0 mg/dl (6-23); Calcium 8.5 mg/dl (8.6-10.3); Carbon Dioxide 29.0 mmol/L (21-32); Chloride 97.0 mmol/L (98-107); Creatinine Clr Calc Pharmacy 86.1 ml/min; Glucose 108.0 mg/dl (70-99(Fasting)); Potassium 3.5 mmol/L (3.5-5.1); Sodium 131.0 mmol/L (136-145)
[2025-07-15] MEDS: SOD PHOSPHATE/SOD BIPHOSPHATE ENEMA 132 ML BTL PR STA (12:06)
--- NOTE | 2025-07-15 13:30 | Discharge Summary ---
Date of Service July 15, 2025 Admission HPI Per Admitting Provider Patient is a 65 yo F w/ a PMHx of von Willebrand disease (type I), hypothyroidism, dyslipidemia, depression, Hx of BCC, s/p rhinoplasty, Hx of breast Bx, presenting today 2 days s/p hysterectomy. Patient took 1 dose of desmopressin, intranasal, 150 mcg prior to her surgery as a precaution against severe bleeding due to her pre-existing von Willebrand's type 1 disease. This was her first time taking this medication. Patient stated that she started to have nausea and vomiting about a half an hour after getting out of surgery and has had little oral intake since. Patient endorses N/V/AP but denies any CHATMAN's, muscle aches, increased lethargy/confusion and is AAO x 4. Patient also notes that she has had constipation on and off for twenty years and has been attempting to manage it with twice weekly Senna laxative doses. Today she feels constipated and hasn't had a BM since her surgery. She feels that most of the abdominal pain is coming from her retained stool as opposed from the N/V, which is more associated with a cramping pain. Admission Exam Per Admitting Provider Constitutional: WD/WN, vitals as above Respiratory: normal respiratory effort, lungs clear to auscultation Cardiovascular: RRR, no murmur, no edema Extremities: no calf tenderness Gastrointestinal (Abdomen): Inspection/Auscultation: abdomen normal to inspection and normal bowel sounds; abdomen not distended Percussion/Palpation: + abdomen tender (diffuse tenderness) and abdomen soft; no guarding Psychiatric: A+Ox3, euthymic affect Principal Diagnosis Hyponatremia Discharge Exam Constitutional WD/WN, vitals as above Respiratory normal respiratory effort, lungs clear to auscultation Cardiovascular RRR, no murmur, no edema Gastrointestinal (Abdomen) normal bowel sounds, soft, nontender, no hepatosplenomegaly Skin no rashes, warm and dry Psychiatric A+Ox3, euthymic affect Discharge Data Allergies Allergy/AdvReac Type Severity Reaction Status Date / Time Penicillins Allergy Intermediate Verified 03/19/25 08:38 Sulfa (Sulfonamide Allergy Intermediate Verified 03/19/25 08:38 Antibiotics) sulfamethoxazole Allergy Intermediate Verified 03/19/25 08:38 ANCHOVY Allergy Severe Redness of Uncoded 03/19/25 08:38 Skin Consultations 07/14/25 08:23 ED Decision to Admit Stat Ordered Studies 07/14/25 06:06 CT abd pelvis IV con only Stat 07/14/25 06:23 CT head/brain wo con Stat Hospital Course (1) Acute urinary retention: (2) Status post hysterectomy: (3) Constipation: (4) Hyponatremia with decreased serum osmolality: (5) Von Willebrand disease, type I: Plan #Hyponatremia/Nausea and Vomiting/Low serum osmolality - Na, 118 upon admission; took one 150 mcg dose of desmopressin on Mon prior to her hysterectomy - Serum osmolality, 249; Urine osmolality, 251; Ur (Na), 60 - CT-Head: 1. No evidence of acute intracranial abnormality is demonstrated. 2. Chronic microvascular ischemic changes. 3. Cerebral atrophy. 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 Advised follow up with triple phase CT/ MRI if clinically indicated. 2) Minimal intrahepatic biliary ductal dilatation in left lobe of liver. No obvious hyperdense calculus seen in common bile duct. 3) Colonic fecal and gaseous distension. No signs of bowel obstruction. - ordered Fleet enema; Miralax, 17 g, PO, BID, PRN, worked well - ordered repeat Fleet enema per patient request 07/15 #Left liver lobe hypodensity - recommended outpatient PCP follow up for evaluation and further workup post discharge Code status: Full code Disposition: d/c VTE Prophylaxis: Lovenox, 40 mg, subQ, daily FENGI: NSS, 125 mL/hr, 2 L total; Full liquids Total Time Total Time Spent Total Time Spent (In Minutes): as per attending attestation Discharge Plan Discharge Items Patient Disposition: Home - Self-Care Reason For Visit: HYPONATREMIA Discharge Diagnosis: Hyponatremia Condition on Discharge: Serious Activity: Per Instructions section Non-emergency contact: Primary Care Provider Call non-emergency contact if: your symptoms worsen Follow-up/Referrals: Mor Hayes MD [Primary Care Provider] - (SPOKE TO PATIENT; SHE WILL MAKE HER OWN HOSPITAL FOLLOW UP WITH DR HAYES) Diet: Regular Addtl Attending Provider Instructions: You were seen in the emergency department due to abdominal pain, nausea/vomiting after your hysterectomy procedure. Upon arrival, your sodium levels were low at 118. You were given fluids and then transitioned to a liquid diet which you tolerated well. Your sodium levels improved to 131 and you were clinically feeling better. We believe this was most likely a drug-induced SIADH with Desmopressin. You also had constipation during your time here and we were able to do an enema and Miralax laxative which helped. We did a bladder scan during your time here which showed you were retaining urine, which is why we put a perez catheter in. We can attempt a trial today of removing the perez prior to leaving, or you are welcome to keep the perez in for a few days and remove it outpatient. Please continue all home medications as indicated upon discharge. Your CT abdomen/pelvis showed a hypodense area around your left liver, and I would also recommend following up with your PCP outpatient for possible further imaging and workup. Pending Studies at Discharge: No Stand-Alone Forms: My [facility] [employer], Smoking Cessation Medications and DC Order Prescriptions: Continued bupropion HCl 150 mg tablet sustained-release 12 hr 150 mg PO DAILY Qty: 90 3RF Prempro 0.625-2.5 mg tablet 1 tab PO QAM Qty: 90 1RF Rx Instructions: Take 1 tablet by mouth daily. cholecalciferol (vitamin D3) 50 mcg (2,000 unit) capsule 4,000 unit PO DAILY Hold Instructions: Holding per pt ondansetron 4 mg tablet,disintegrating 4 mg PO Q6H PRN (Reason: Nausea) levothyroxine 88 mcg tablet 88 mcg PO QAM Rx Instructions: TAKE 1 TABLET BY MOUTH EVERY DAY No Action docusate sodium 100 mg capsule 200 mg PO BID PRN (Reason: Constipation) acetaminophen [Tylenol Extra Strength] 500 mg tablet 1,000 mg PO Q6H PRN (Reason: fever) Qty: 90 0RF Premarin 0.625 mg/gram cream 0.5 mg vaginal DAILY Rx Instructions: 0.5 mg daily 2 x a week on Saturday and saturday polyethylene glycol Powder See Rx Instructions miscellaneous .COMPLEX Rx Instructions: 17 gm as directed; BID. biotin 2,500 mcg capsule 2,500 mcg PO DAILY valacyclovir [Valtrex] 1 gram tablet 1,000 mg PO DAILY PRN Rx Instructions: Reported. testosterone 50 mg/5 gram (1 %) gel 1 tube transdermal DAILY Rx Instructions: Reported hydrochlorothiazide 25 mg tablet 12.5 mg PO DAILY PRN (Reason: edema) Qty: 30 2RF Rx Instructions: Edema PRN desmopressin 10 mcg/spray (0.1 mL) spray,non-aerosol See Rx Instructions .ROUTE .COMPLEX PRN Rx Instructions: PRN; Pt was instructed 15 sprays prior to surgery both nares 2 hours prior to surgery. ---RX'd by Dr. Avalos. clindamycin phosphate 1 % gel, once daily 1 applic topical BID Rx Instructions: Apply BID to affected area. Discharge Orders: Discharge Order (Routine); Ordered 07/15/25 Ordered By: Khang Bush Admission Data Admit Date/Time: 07/14/25 10:32 Attending Provider: Khang Bush Admit Provider: Kurtis Parrish Primary Care Provider: Mor Hayes Other Interventions: Discharge Summary Assessment (RN) Last Done: 07/15/25 11:26 Supervising Physician Co-Signing Physician Notes I personally examined the patient and verified all araya points of history and exam, discussed case, and agree with decision making with Dr Cedeno PGY-1 hyponatreemia/ nausea vomiting/ low serum osmolality Likely secondary to desmopressin and may perhaps urinary retention Sodium is back at goal. Patient is feeling back to her normal self and is ready for discharge. Hyponatremia likely acute. Removed perez, patient was able to urinate and did not require a perez at time of discharge. Time of discharge of 35 minutes. This included working on the discharge instructions, reviewing medications, discussing plan with patient and evaluating patient. Resident Activity Tracking Resident Involvement: Resident Care Provided Care Provided: Adult Hospital Medicine
[2025-07-15 15:55] VITALS: BP 137/82; PULSE 63; TEMP 97.7; O2SAT 100
--- NOTE | 2025-07-20 06:13 | Billing Data ---
Date of Service July 14, 2025 Coding Level of Care Code 23699 INT INP/OBS CARE
--- NOTE | 2025-07-20 20:34 | Billing Data ---
Date of Service July 15, 2025 Coding Level of Care Code 28168 INP/OBS DISCH >30 MIN Time Spent (min) 35
== END 2025-07-15 17:36 | disposition home or self-care (01) ==
LOC: ED 05:03 → 3E 10:32 → INTOOBSV 10:32 → 3E 12:08